=== PATIENT | female | born 1960 | race Caucasian/White ===

== ENCOUNTER 2016-06-10 07:21 | Day surgery (SDC) | payer BC ==
[~2016-06-10] VITALS: Ht 170.2 cm; Wt 103.0 kg
[2016-06-10] MEDS ORDERED: fentaNYL CITRATE/PF 100 MCG/2 ML AMP ONE (08:16)
[2016-06-10] MEDS ORDERED: MIDAZOLAM HCL 5 MG/5 ML VIAL ONE ×2 (08:16)
[2016-06-10] MEDS ORDERED: fentaNYL CITRATE/PF 100 MCG/2 ML AMP IVP ONE ×3 (09:42→09:50)
[2016-06-10] MEDS ORDERED: MIDAZOLAM HCL 5 MG/5 ML VIAL IVP ONE ×4 (09:44→10:02)
[2016-06-10] MEDS ORDERED: DIPHENHYDRAMINE INJ 50 MG/ML VIAL IVP ONE (10:04)
[2016-06-10] MEDS ORDERED: DIPHENHYDRAMINE INJ 50 MG/ML VIAL ONE (10:39)
[2016-06-10 14:10] VITALS: BP_SYST 116
== END 2016-06-10 11:20 | disposition home or self-care (01) ==
LOC: SDS 07:21 → SMU 07:22 → SDS 11:12
PROVIDERS: ATTEND Internal Medicine
DX: Z12.11 Encounter for screening for malignant neoplasm of colon (principal); K31.7 Polyp of stomach and duodenum; K21.9 Gastro-esophageal reflux disease without esophagitis; K57.30 Diverticulosis of large intestine without perforation or abscess without bleeding; K64.8 Other hemorrhoids
CPT/HCPCS: 36415; 43239; 45378; 87081; 88305; 88312; 88313; J1200; J2250; J3010

== ENCOUNTER 2019-05-08 06:07 | Day surgery (SDC) | payer BC ==
[~2019-05-08] VITALS: Ht 170.2 cm; Wt 98.9 kg
[2019-05-08] MEDS ORDERED: CEFAZOLIN 2 GM IVPB PREMIX 50 ML IV ONE (06:45)
[2019-05-08] MEDS ORDERED: LR 1,000 ML IV SCH (07:42)
[2019-05-08] MEDS ORDERED: ONDANSETRON HCL 4 MG/2 ML VIAL IVP PRN ×2 (07:45→12:00)
[2019-05-08] MEDS ORDERED: HYDROmorphone 1 MG INJ. 1 MG/ML AMPUL IVP PRN ×2 (07:45)
[2019-05-08 09:02] LABS: CALCIUM 9.2 mg/dL (8.4-11.0); CREATININE 0.97 mg/dL (0.55-1.30); POTASSIUM 3.9 mmol/L (3.5-5.1)
[2019-05-08 09:07] LABS: ALBUMIN 3.5 g/dL (3.4-4.8); TOTAL BILIRUBIN 0.5 mg/dL (0.0-1.0)
[2019-05-08] MEDS ORDERED: HYDROcodone/ACETAMIN 5-325 MG TAB (NORCO/ VICODIN) PO PRN (12:00)
[2019-05-08] MEDS ORDERED: OXYCODONE/ACETAMINOPHEN 5-325 TABLET PO PRN ×2 (12:00)
[2019-05-08] MEDS ORDERED: ONDANSETRON HCL 4 MG/2 ML VIAL ONE ×3 (12:10→15:50)
[2019-05-08] MEDS ORDERED: LR 1,000 ML IV.SOLN IV ONE (12:10)
[2019-05-08] MEDS ORDERED: DESFLURANE 15 MIN GAS INH ONE (12:10)
[2019-05-08] MEDS ORDERED: PROPOFOL 200MG/ 20ML VIAL (DIPRIVAN) IV ONE (12:10)
[2019-05-08] MEDS ORDERED: SUCCINYLCHOLINE CHLORIDE 20 MG/ML(QUELICIN) ONE (12:10)
[2019-05-08] MEDS ORDERED: WATER FOR IRRIGATION,STERILE 1,000 ML IRRIG.SOLN IR ONE (12:10)
[2019-05-08] MEDS ORDERED: BUPIVACAINE /EPINEPHRINE/PF 0.5% 30 ML VIAL INJ ONE (12:10)
[2019-05-08] MEDS ORDERED: DEXTROSE 50% JECT 50 ML DISP.SYRIN ONE (12:10)
[2019-05-08] MEDS ORDERED: DEXAMETHASONE SOD PHOSPHATE 4 MG/ML VIAL ONE (12:10)
[2019-05-08] MEDS ORDERED: ROCURONIUM BROMIDE 10 MG/ML (ZEMURON) ONE (12:10)
[2019-05-08] MEDS ORDERED: fentaNYL CITRATE/PF 100 MCG/2 ML AMP IVP ONE (12:10)
[2019-05-08] MEDS ORDERED: HYDROmorphone 2 MG/ML VIAL IVP ONE (12:10)
[2019-05-08] MEDS ORDERED: FUROSEMIDE 20 MG/2 ML VIAL ONE (12:10)
[2019-05-08] MEDS ORDERED: KETOROLAC TROMETHAMINE 30 MG VIAL ONE (12:10)
[2019-05-08] MEDS ORDERED: NS IRRIG SOLN 1000 ML IR ONE (12:10)
[2019-05-08 13:23] VITALS: BP_SYST 119
[2019-05-08] MEDS ORDERED: ONDANSETRON HCL 4 MG/2 ML VIAL IVP ONE (15:45)
[2019-05-08] MEDS ORDERED: METOCLOPRAMIDE HCL 10 MG/2 ML VIAL IVP ONE (15:45)
== END 2019-05-09 05:40 | disposition home or self-care (01) ==
LOC: SDS 06:07 → SPU 16:40 → SDS 05-09 05:40
PROVIDERS: ATTEND Specialist
DX: N81.4 Uterovaginal prolapse, unspecified (principal); I10 Essential (primary) hypertension; E66.9 Obesity, unspecified; Z98.890 Other specified postprocedural states
CPT/HCPCS: 36415; 71046; 80053; 88305; 88307; 93005; J0330; J0690; J1100; J1170; J1885; J1940; J2405; J2704; J3010; J3490; J7120; J2765